=== PATIENT | female | born 1965 | race Caucasian/White ===

== ENCOUNTER 2024-07-05 11:52 | Emergency (ER) | payer OTHER ==
[~2024-07-05] VITALS: Ht 160 cm; Wt 87.1 kg
[2024-07-05] MEDS ORDERED: SODIUM CHLORIDE 0.9% 1,000 ML IV ONE (12:20)
[2024-07-05] MEDS ORDERED: Ondansetron Hydrochloride 4 MG/2 ML VIAL IV ONE (12:20)
[2024-07-05] MEDS ORDERED: Ketorolac Tromethamine 15 MG/ML VIAL IV ONE (12:20)
[2024-07-05 12:40] LABS: BASO % 0.4 % (0.0-1.0); EOS # 0.2 10*3/uL (0.0-0.4); EOS % 2.4 % (1.0-4.0); HEMATOCRIT 43.2 % (37.0-47.0); LYMPH # 1.6 10*3/uL (1.3-4.4); LYMPH % 20.3 % (27.0-41.0); MEAN CELL VOLUME 91.9 fl (81.0-99.0); MEAN CORPUSCULAR HGB 31.5 pg (27.0-31.0); MEAN CORPUSCULAR HGB CONC 34.3 g/dl (33.0-37.0); MEAN PLATELET VOLUME 9.1 fl (9.6-12.3); MONO # 0.4 10*3/uL (0.1-1.0); MONO % 5.1 % (3.0-9.0); NEUT # 5.7 10*3/uL (2.3-7.9); NEUT % 71.4 % (47.0-73.0); PLATELET COUNT AUTOMATED 183 10*3/uL (130-400); RED CELL DISTRI WIDTH 11.9 % (0-14.5); WHITE BLOOD COUNT 7.9 10*3/uL (4.8-10.8)
[2024-07-05 12:54] LABS: BUN 13 mg/dl (9-23); CHLORIDE 108 mmol/L (98-107); POTASSIUM 3.5 mmol/L (3.4-5.1)
[2024-07-05] MEDS ORDERED: KETOROLAC10 MG PO (12:54)
[2024-07-05] MEDS ORDERED: FLOMAX0.4 MG PO (12:54)
[2024-07-05] MEDS ORDERED: Ondansetron4 MG PO (12:54)
[2024-07-05] MEDS ORDERED: Tamsulosin Hydrochloride 0.4 MG CAP PO ONE (12:55)
[2024-07-05 13:29] LABS: BILIRUBIN Negative (Negative); BLOOD 2+ (Negative); CLARITY Cloudy (Clear); COLOR Dark Yellow (Yellow); GLUCOSE Negative (Negative); KETONE 1+ (Negative); LEUKO ESTERASE Negative (Negative); NITRITE Negative (Negative)
[2024-07-05 13:40] LABS: BACTERIA 1+; CALCIUM OXALATE CRYSTALS 2+; MUCOUS 1+; RBC 51-100 rbc/hpf (0-2)
[2024-07-05] MEDS ORDERED: Ciprofloxacin Hydrochloride 500 MG TAB PO ONE (14:00)
[2024-07-05] MEDS ORDERED: CIPRO500 MG PO (14:01)
== END 2024-07-05 14:09 | disposition home or self-care (01) ==
LOC: ED 11:52
PROVIDERS: Nurse Practitioner Family
DX: N20.0 Calculus of kidney (principal); K44.9 Diaphragmatic hernia without obstruction or gangrene; R11.0 Nausea; Z88.6 Allergy status to analgesic agent